=== PATIENT | female | born 1960 | race Caucasian/White ===

== ENCOUNTER 2024-12-26 14:28 | Outpatient (CLI) | payer MEDICARE, OTHER ==
[~2024-12-26] VITALS: Ht 165.1 cm; Wt 80.7 kg
[~2024-12-26 14:28] MED LIST: CYCL-1 PO
[2024-12-26 14:58] VITALS: PULSE 61; RESP 16; O2SAT 97
[2024-12-26] MEDS: albuterol 2.5 MG/3 ML nebule NEB ONE (15:06)
[2024-12-26 15:10] VITALS: PULSE 61; RESP 16
--- NOTE | 2024-12-27 16:56 | PROCEDURE NOTE - Respiratory ---
Procedure Note-Respiratory Providers to CC Copies To 1: SELENE MASTERS Procedure Name: This is a spirometry study dated December 26, 2024. This study was performed both before and after inhaled bronchodilator administration. Spirometry measurements: The forced vital capacity is in the normal range. The FEV1 is at the lower range of normal. The FEV1 ratio is reduced. Several of the flow rate measurements show significant reduction. After inhaled bronchodilator there is very small improvement in some of the flow rate measurements. Conclusion: This study is abnormal. There is evidence for obstructive ventilatory defect in the mild category. The patient improved slightly with inhaled bronchodilator. 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 It is recommended the patient completely abstain from cigarette smoking and/or marijuana smoking. Bronchodilator therapy will very likely help this patient. We have no previous studies for comparison. CORINA ROSARIO MD Dec 27, 2024 16:56
== END 2024-12-26 23:59 | disposition home or self-care (01) ==
LOC: RT 14:28
PROVIDERS: ATTEND Physician Assistant
DX: R05.3 Chronic cough (principal)
CPT/HCPCS: 94060; 94760